=== PATIENT | male | born 1955 | race Caucasian/White ===

== ENCOUNTER 2017-01-09 22:15 | Emergency (ER) | payer BC, OTHER ==
--- NOTE | 2017-01-09 23:41 | EDM.PDOC ---
ED HPI Trauma - General Chief Complaint: Lower Extremity Injury/Pain Stated Complaint: PAIN IN TOE; DIABETIC Time Seen by Provider: 01/09/17 22:47 Source: Reports: Patient, Family (), RN notes reviewed History Limitations: Reports: No limitations - History of Present Illness INITIAL COMMENTS - FREE TEXT/NARRATIVE: The patient states that he has type 1 diabetes, and that he developed an ulcer on his left fifth toe in September 2016. He saw Dr. Manrique, a Upsetter Helper at [facility] in September, which led to debridement and a skin graft. He subsequently saw Dr. Goff, a Upsetter Helper in [place] in early November 2016. He was sent to a gas fitter helper, where a CT angiogram of his lower extremities found peripheral vascular disease. He underwent angioplasty without stents at 2 sites in his left lower extremity towards the end of November 2015. He states that following that procedure, he was prescribed 30 tablets of Percocet. He states that he called Dr. Goff this past 01/06/2017, and an x- ray of his toe was performed, which he was told "looked good". He was instructed to continue daily dressings with antibiotic ointment. He is to followup with Dr. Goff on 01/19/2017. He now presents stating that the Tylenol and ibuprofen that he has been taking for continued left toe pain is inadequate. He states that his vascular surgeon and Podiatrists have refused to prescribe additional narcotics, and instructed him to get additional prescriptions from his primary care physician, Dr. Kunz. He states that he called the office of Dr. Kunz, but that Dr. Kunz did not call him back. Allergies/ADRs: Allergies No Known Allergies Allergy (Verified 01/09/17 22:33) Home Medications: Ambulatory Orders Insulin Lispro [HumaLOG] 0 pump .ROUTE ASDIRECTED 09/24/14 [Confirmed 01/09/17] Lisinopril [Prinivil] 10 mg PO DAILY 09/24/14 [Confirmed 01/09/17] Aspirin 81 mg PO DAILY 01/09/17 [Confirmed 01/09/17] FLUoxetine [PROzac] 20 mg PO DAILY 01/09/17 [Confirmed 01/09/17] Multivitamin [Multivitamins] 1 each PO DAILY 04/07/17 [Confirmed 01/09/17] Past Medical History Cardiovascular History: Reports: PVD Psychiatric History: Reports: Anxiety Endocrine/Metabolic History: Reports: Diabetes, type I - Past Surgical History HEENT Surgical History: Reports: Cataract surgery, Oral surgery ([place] teeth extraction) Cardiovascular Surgical History: Reports: Vascular surgery (LLE angioplasty without stents, 2 locations) Social & Family History - Tobacco Use Smoking Status *Q: Never Smoker - Caffeine Use Caffeine Use: Reports: Coffee - Alcohol Use Alcohol Use History: Yes Days Per Week of Alcohol Use: 2 Number of Drinks Per Day: 2 Total Drinks Per Week: 4 Alcohol Use Frequency: Socially - Recreational Drug Use Recreational Drug Use: No - Living Situation & Occupation Living situation: Reports: , with spouse Occupation: unemployed (x 5 months) Review of Systems - Review of Systems Review Of Systems: See Below Constitutional: Reports: no symptoms Eyes: Reports: no symptoms Ears: Reports: no symptoms Nose: Reports: no symptoms Mouth/Throat: Reports: no symptoms Respiratory: Reports: No Symptoms Cardiovascular: Reports: no symptoms GI/Abdominal: Reports: No symptoms Genitourinary: Reports: no symptoms Musculoskeletal: Reports: no symptoms Skin: Reports: no symptoms Neurological: Reports: No Symptoms Psychiatric: Reports: no symptoms Trauma Exam - Physical Exam Exam: See Below Exam Limited By: No limitations General Appearance: Reports: alert, WD/WN, no apparent distress Extremities: Reports: other (There is a significant ulcer involving the posterior lateral aspect of the left fifth toe. There is swelling to the left foot, and erythema at the base of the left fifth toe. The patient reports no tingling or numbness to the left foot. Perfusion of the left foot is adequate.) Course - Vital Signs Last Recorded V/S: Last Vital Signs Temp 36.3 C 01/09/17 22:28 Pulse 99 01/09/17 22:28 Resp 18 01/09/17 22:28 BP 154/89 H 01/09/17 22:28 Pulse Ox 99 01/09/17 22:28 - Re-Assessments/Exams Free Text/Narrative Re-Assessment/Exam: 01/09/17 23:30 Review of the [place] PMPi indicates that the patient was prescribed 30 Percocet on per his vascular surgeon, Dr. Andrew Dixon, then another 30 Percocet on 12/15/2016 by a mid-level from Dr. Dixon's office. The patient states that his vascular surgeon and Podiatrists have refused to prescribe additional narcotics, and instructed him to get additional prescriptions from his primary care physician, Dr. Kunz. While it is true that Dr. Kunz is out of town this weekend, it does not seem credible that the patient has not been able to reach Dr. Kunz since mid. I don't believe it would be appropriate for me to prescribe strong narcotics to this patient, given that he has several potential prescribers, none of whom were apparently willing to prescribe for him. I will prescribe 15 tablets of tramadol by [facility], then he will have to followup with Dr. Kunz on Thursday morning, 01/12/2017. 01/09/17 23:41 I discussed the above plan with the patient and his . Oddly, the stated that they don't want tramadol, and that they will take nothing if they can't get Percocet. I also offered to prescribe some Keflex to treat a possible infection, enough until he can followup with Dr. Kunz on Thursday, but they declined that as well. They have agreed to followup with Dr. Kunz this coming Thursday. Departure - Departure Time of Disposition: 23:42 Disposition: Home, Self-Care 01 Condition: good Clinical Impression: Diabetic ulcer of toe of left foot, Drug-seeking behavior Instructions: Diabetes and Foot Care Referrals: Cooper Kunz MD [Primary Care Provider] - Forms: ED Department Discharge Additional Instructions: You were seen in the emergency room [facility] for a left pinky toe pain associated with a diabetic ulcer. You were offered prescriptions of the pain medicine tramadol and the antibiotic Keflex, but declined both. We recommend that you continue to care for your toe as you have previously been instructed by your Upsetter Helper. You have agreed to followup with your PCP, Dr. Kunz, this coming Thursday, 07/2017. If any other problems, please do not hesitate to return to the ER.
== END 2017-01-09 23:51 | disposition home or self-care (01) ==
LOC: JD.ED 22:15
CPT/HCPCS: 99283; 99284

== ENCOUNTER 2017-03-17 11:40 | Emergency (ER) | payer BC, OTHER ==
--- NOTE | 2017-03-17 13:57 | EDM.PDOC ---
ED HPI GENERAL MEDICAL PROBLEM - General Chief Complaint: Lower Extremity Injury/Pain Stated Complaint: L FOOT CELLULITIS Time Seen by Provider: 03/17/17 12:10 Source of Information: Reports: Patient History Limitations: Reports: No Limitations - History of Present Illness INITIAL COMMENTS - FREE TEXT/NARRATIVE: Patient is a 61 year old male who presents to the E.D. with cellulitis to the left foot. Patient recently had left 5th toe removed due to osteomyelitis. Was evaluated by [employer] in [facility] with diagnosis of cellulitis requiring IV antibiotics, MRI, and wound debridement. Patient states he was instructed to come back to [place] and be admitted for these therapies. Dr. Manrique has been notified per patient and this has been arranged. Dr. Goff has not made contact with the E.D. Patient has redness to the left foot that is localized. Denies fever, chills, n/v, or red streaking up leg. Left Feet Pain Score (Numeric/FACES): 4 - Related Data Allergies Allergy/AdvReac Type Severity Reaction Status Date / Time No Known Allergies Allergy Verified 03/17/17 11:50 Home Meds: Home Meds Insulin Lispro [HumaLOG] 0 pump .ROUTE ASDIRECTED 09/24/14 [History] Lisinopril [Prinivil] 10 mg PO DAILY 09/24/14 [History] Aspirin 81 mg PO DAILY 01/09/17 [History] FLUoxetine [PROzac] 20 mg PO DAILY 01/09/17 [History] Multivitamin [Multivitamins] 1 each PO DAILY 01/09/17 [History] Clopidogrel Bisulfate [Plavix] 75 mg PO DAILY 03/17/17 [History] Hydrocodone/Acetaminophen [Hydrocodon-Acetaminophen 5-325] 1 tab PO ASDIRECTED PRN 03/17/17 [History] traMADol Hcl/Acetaminophen [Ultracet Tablet] 1 tab PO ASDIRECTED PRN 03/17/17 [ History] Past Medical History Cardiovascular History: Reports: PVD Psychiatric History: Reports: Anxiety Endocrine/Metabolic History: Reports: Diabetes, Type I Dermatologic History: Reports: Decubitus Ulcer - Past Surgical History HEENT Surgical History: Reports: Cataract Surgery, Oral Surgery Cardiovascular Surgical History: Reports: Vascular Surgery Musculoskeletal Surgical History: Reports: Amputation Social & Family History - Family History Cardiac: Reports: CAD - Tobacco Use Smoking Status *Q: Never Smoker Second Hand Smoke Exposure: No - Caffeine Use Caffeine Use: Reports: Coffee, Soda, Tea - Alcohol Use Days Per Week of Alcohol Use: 2 Number of Drinks Per Day: 2 Total Drinks Per Week: 4 - Recreational Drug Use Recreational Drug Use: No - Living Situation & Occupation Living situation: Reports: , with Spouse Occupation: Unemployed Review of Systems - Review of Systems Review Of Systems: ROS reveals no pertinent complaints other than HPI. ED EXAM, GENERAL - Physical Exam Exam: See Below Exam Limited By: No Limitations General Appearance: Alert, WD/WN, No Apparent Distress Ears: Normal External Exam, Hearing Grossly Normal Nose: Normal Inspection Throat/Mouth: Normal Voice, No Airway Compromise Neck: Normal Inspection, Supple Respiratory/Chest: No Respiratory Distress, No Accessory Muscle Use Cardiovascular: Normal Peripheral Pulses, Regular Rate, Rhythm Extremities: Other (Left foot: Surgical shoe with dressing present to the left foot. Dressing removed indicating erythema extended to the dorsum and arch/sole of left foot. Small area of eschar present. No draining noted. No swelling or redness above the ankle. Minimal pain present. ) Neurological: Alert, Oriented, Normal Cognition, No Motor/Sensory Deficits Psychiatric: Normal Affect, Normal Mood Skin Exam: Warm, Dry Course - Vital Signs Last Recorded V/S: Last Vital Signs Temp 97.2 F 03/17/17 14:10 Pulse 90 03/17/17 14:10 Resp 18 03/17/17 14:10 BP 143/70 H 03/17/17 14:10 Pulse Ox 99 03/17/17 14:10 - Re-Assessments/Exams Free Text/Narrative Re-Assessment/Exam: [address] Garcia [employer] [place]. States nursing staff from his clinic contacted the [facility] and was told that the patient requires admission to the ED for IV antibiotics and consultation with Dr. Coleman for cellulitis to the left foot. States that Dr. Manrique was notified of this patient and has agreed to accept the patient. Spoke with the charge nurse, case management, and Dr. Huang nobody contacted them in regards to direct admission of patient. 1236 Dr. Coleman's office was contacted and message left. Dr. Coleman is at lunch and he will contact us when available. 1322: Spoke with Dr. Jared, he will not be around for the next 2 days. In addition patient and him had a falling out and he does not want to see the patient back. Request patient be sent back to [place] for treatment. Dr. Coleman was never notified of the patient returning back to [place] and did not agree to see him back. Attempted to contact on-call orthopedic surgeon with no answer. Unsure if he is in surgery. [address] Garcia, patient will be going back to [place] for treatment. Patient is aware of this and agrees with plan. Patient will be a direct admit. Dr. Escobar's nurse will be contacting the patient during transport. Dressing will be applied to the affected area discharge instructions as documented. Departure - Departure Time of Disposition: 13:57 Disposition: DC/Tfer to Acute Hospital 02 Condition: Good Clinical Impression: Cellulitis and abscess of foot, Status post amputation of toe of left foot - Discharge Information Instructions: Cellulitis, Adult Forms: ED Department Discharge Additional Instructions: Go to the admissions desk at [facility] to be admitted. Dr. Garcia states you will be a direct admit and will not need to go through the E.D. If you should have any questions please call Dr. Hinds nurse. Dr. Garcia nurse should be in contact with you during your drive to give further directions.
[2017-03-17 15:11] VITALS: BP 143/70
== END 2017-03-17 14:15 ==
LOC: JD.ED 11:40
DX: L03.116 Cellulitis of left lower limb (principal); L02.612 Cutaneous abscess of left foot; Z89.422 Acquired absence of other left toe(s); F41.9 Anxiety disorder, unspecified; E10.9 Type 1 diabetes mellitus without complications; I73.9 Peripheral vascular disease, unspecified; Z98.49 Cataract extraction status, unspecified eye; Z98.890 Other specified postprocedural states; Z79.82 Long term (current) use of aspirin; Z79.02 Long term (current) use of antithrombotics/antiplatelets; Z79.899 Other long term (current) drug therapy
CPT/HCPCS: 99284

== ENCOUNTER 2021-01-23 17:56 | Emergency (ER) | payer OTHER, MEDICARE ==
[2021-01-23 18:15] VITALS: BP 153/83; PULSE 101
[2021-01-23] MEDS ORDERED: Ondansetron 4 MG/2 ML SDV IVPUSH ONE (18:20)
[2021-01-23] MEDS ORDERED: Sodium Chloride 0.9% 10 ML Syringe FLUSH PRN (18:20)
[2021-01-23] MEDS: Sodium Chloride 0.9% 1,000 ML IV SCH ×2 (18:25→19:27)
--- NOTE | 2021-01-23 18:48 | EDM.PDOC ---
ED HPI GENERAL MEDICAL PROBLEM - General Chief Complaint: Diabetic Complaint Stated Complaint: HIGH BLOOD SUGAR SENT BY [facility] Time Seen by Provider: 01/23/21 18:12 Source of Information: Reports: Patient, RN Notes Reviewed History Limitations: Reports: No Limitations - History of Present Illness INITIAL COMMENTS - FREE TEXT/NARRATIVE: Patient is a 65-year-old male presents to the ER for issues with elevated blood sugars. He was evaluated by his primary care provider, Dr. Kunz, for elevated blood sugars today. He does have type 1 diabetes mellitus. He notes that his blood sugars were elevated over the last couple weeks, his blood sugar at the clinic today was above 500, they did replace his Omni pod, which is his insulin delivery device, and his blood sugar at the time of triage here was 363. Patient notes he had a little bit of nausea while at the clinic, so they sent him over here for fluids, nausea meds and further management. Patient denies any fevers or chills, cough or shortness of breath, or any other sick-like symptoms prior to this. 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 - Related Data Allergies Allergy/AdvReac Type Severity Reaction Status Date / Time No Known Allergies Allergy Verified 01/23/21 18:15 Home Meds: Home Meds lisinopriL [Prinivil] 10 mg PO DAILY 09/24/14 [History] Aspirin 81 mg PO DAILY 01/09/17 [History] FLUoxetine [PROzac] 20 mg PO DAILY 01/09/17 [History] Multivitamin [Multivitamins] 1 each PO DAILY 01/09/17 [History] Clopidogrel Bisulfate [Plavix] 75 mg PO DAILY 03/17/17 [History] traMADol Hcl/Acetaminophen [Ultracet Tablet] 1 tab PO ASDIRECTED PRN 03/17/17 [History] Gabapentin [Neurontin] 300 mg PO TID 01/23/21 [History] Insulin Aspart (Niacinamide) [Fiasp 100 Unit/ml Vial] 0 units SQ ASDIRECTED 0 01/23/21 [History] lisinopriL [Lisinopril] 10 mg PO DAILY 01/23/21 [History] Past Medical History Cardiovascular History: Reports: High Cholesterol, Hypertension, PVD Neurological History: Reports: Neuropathy, Diabetic Psychiatric History: Reports: Anxiety Endocrine/Metabolic History: Reports: Diabetes, Type I Dermatologic History: Reports: Decubitus Ulcer - Past Surgical History HEENT Surgical History: Reports: Cataract Surgery, Oral Surgery Cardiovascular Surgical History: Reports: Vascular Surgery Musculoskeletal Surgical History: Reports: Amputation Social & Family History - Family History Cardiac: Reports: CAD - Tobacco Use Tobacco Use Status *Q: Never Tobacco User - Caffeine Use Caffeine Use: Reports: Coffee, Soda, Tea - Recreational Drug Use Recreational Drug Use: No - Living Situation & Occupation Living situation: Reports: , with Spouse Occupation: Unemployed ED ROS GENERAL - Review of Systems Review Of Systems: Comprehensive ROS is negative, except as noted in HPI. ED EXAM GENERAL NO PERIP PULSE - Physical Exam Exam: See Below Exam Limited By: No Limitations General Appearance: Alert, WD/WN, No Apparent Distress Respiratory/Chest: No Respiratory Distress, Lungs Clear, Normal Breath Sounds, No Accessory Muscle Use, Chest Non-Tender Cardiovascular: Normal Peripheral Pulses, Regular Rate, Rhythm, No Edema GI/Abdominal: Normal Bowel Sounds, Soft, Non-Tender, No Distention, No Mass Extremities: Normal Inspection, Normal Capillary Refill Neurological: Alert, Oriented, Normal Cognition, No Motor/Sensory Deficits Psychiatric: Normal Affect, Normal Mood Skin Exam: Warm, Dry, Intact, Normal Color, No Rash Course - Vital Signs Last Recorded V/S: Last Vital Signs Temp 97.4 F 01/23/21 18:11 Pulse 101 H 01/23/21 18:11 Resp 16 01/23/21 18:11 BP 153/83 H 01/23/21 18:11 Pulse Ox 99 01/23/21 18:11 - Orders/Labs/Meds Orders: Active Orders 24 hr Category Date Time Status POC Glucose [Blood Glucose Check, Bedside] [RC] Q1H Care 01/23/21 18:21 Ordered Peripheral IV Care [RC] . DIRECTED Care 01/23/21 18:20 Ordered GLUCOSE,POC [POC] Routine Lab 01/23/21 20:41 Received Sodium Chloride 0.9% [Saline Flush] Med 01/23/21 18:20 Ordered 10 ml FLUSH ASDIRECTED PRN Peripheral IV Insertion Adult [OM.PC] Routine Oth 01/23/21 18:20 Ordered Medication Orders Sodium Chloride (Sodium Chloride 0.9% 10 Ml Syringe) 10 ml FLUSH ASDIRECTED PRN PRN Reason: Keep Vein Open Last Admin: 01/23/21 18:26 Dose: 10 ml Documented by: AISSATOU Labs: Laboratory Tests 01/23/21 01/23/21 01/23/21 Range/Units 18:10 18:19 18:20 VBG pH 7.46 H (7.30-7.40) Sodium 129 L (136-145) mEq/L Potassium 4.1 (3.5-5.1) mEq/L Chloride 92 L (98-107) mEq/L Carbon Dioxide 18 L (21-32) mEq/L Anion Gap 23.1 H (5-15) BUN 19 H (7-18) mg/dL Creatinine 1.1 (0.7-1.3) mg/dL Est Cr Clr Drug Dosing 67.84 mL/min Estimated GFR (MDRD) > 60 (>60) mL/min BUN/Creatinine Ratio 17.3 (14-18) Glucose 388 H (80-115) mg/dL POC Glucose 363 H (70-99) mg/dL Calcium 8.6 (8.5-10.1) mg/dL Total Bilirubin 1.0 (0.2-1.0) mg/dL AST 18 (15-37) U/L ALT 33 (16-63) U/L Alkaline Phosphatase 122 H (46-116) U/L Total Protein 7.9 (6.4-8.2) g/dl Albumin 3.7 (3.4-5.0) g/dl Globulin 4.2 gm/dL Albumin/Globulin Ratio 0.9 L (1-2) Ketones (0.0-0.3) mM 01/23/21 01/23/21 Range/Units 18:20 19:31 VBG pH (7.30-7.40) Sodium (136-145) mEq/L Potassium (3.5-5.1) mEq/L Chloride (98-107) mEq/L Carbon Dioxide (21-32) mEq/L Anion Gap (5-15) BUN (7-18) mg/dL Creatinine (0.7-1.3) mg/dL Est Cr Clr Drug Dosing mL/min Estimated GFR (MDRD) (>60) mL/min BUN/Creatinine Ratio (14-18) Glucose (80-115) mg/dL POC Glucose 290 H (70-99) mg/dL Calcium (8.5-10.1) mg/dL Total Bilirubin (0.2-1.0) mg/dL AST (15-37) U/L ALT (16-63) U/L Alkaline Phosphatase (46-116) U/L Total Protein (6.4-8.2) g/dl Albumin (3.4-5.0) g/dl Globulin gm/dL Albumin/Globulin Ratio (1-2) Ketones 1.99 (0.0-0.3) mM Meds: Medications Generic Name Dose Route Start Last Admin Trade Name Freq PRN Reason Stop Dose Admin Sodium Chloride 10 ml 01/23/21 18:20 01/23/21 18:26 Sodium Chloride 0.9% 10 Ml Syringe FLUSH 10 ml ASDIRECTED PRN Administration Keep Vein Open Discontinued Medications Generic Name Dose Route Start Last Admin Trade Name Freq PRN Reason Stop Dose Admin Sodium Chloride 1,000 mls @ 999 mls/hr 01/23/21 18:30 01/23/21 19:27 Normal Saline IV 01/23/21 20:29 999 mls/hr Q1H ELENA Administration Ondansetron HCl 4 mg 01/23/21 18:20 01/23/21 18:26 Ondansetron 4 Mg/2 Ml Sdv IVPUSH 01/23/21 18:21 4 mg ONETIME ONE Administration - Re-Assessments/Exams Free Text/Narrative Re-Assessment/Exam: 01/23/21 18:47 Patient presents to the ER for his elevated blood sugars, we will go ahead get IV started, get some basic labs to include a venous pH, ketone level, and a repeat metabolic panel as he reported his potassium was slightly elevated at the clinic earlier. We will go ahead and give him a IV bolus of fluids, and recheck his blood sugar after the 1 L, plan is to have maybe 2 L for ongoing management. He will also get 4 mg Zofran for his nausea. 01/23/21 18:57 Patient's blood sugar reported by nursing staff, on the patient's continuous glucose monitor is down to 311 already. We will continue to monitor the blood sugars and get him closer to the 200 level. He will likely need the full 2 L however we will reassess need for fluids as time goes on and the sugars improve. 01/23/21 20:49 The patient's ketones level are back at 1.99, his blood glucose is 228 he is feeling well and is wishing to go home at this time. 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 I am okay with his blood sugar being around 200 at this time. Departure - Departure Time of Disposition: 20:49 Disposition: Home, Self-Care 01 Condition: Good Clinical Impression: Hyperglycemia, Elevated blood ketone body level - Discharge Information *PRESCRIPTION DRUG MONITORING PROGRAM REVIEWED*: No *COPY OF PRESCRIPTION DRUG MONITORING REPORT IN PATIENT TITO: No Instructions: Hyperglycemia, [id number] Referrals: Cooper Kunz MD [Primary Care Provider] - Forms: ED Department Discharge Additional Instructions: You were evaluated in the ER today for your elevated blood sugars. You had a few labs done at today's visit, your potassium level was back to within normal limits, and your other metabolic abnormalities should have corrected with a 2 L fluid you were given at today's visit. Your ketone level was 1.99, not in the level of ketoacidosis at this time. Your blood sugar at the time of discharge was roughly 228, please monitor this for the next half hour 45 minutes, and you may do a corrected insulin bolus as needed if your blood sugars remain somewhat high. It is okay for them to be around 200 at this time, they will hopefully get better overnight. Please do not hesitate to return to the ER at any time if symptoms change or worsen. Sepsis Event Note (ED) - Evaluation Sepsis Screening Result: No Definite Risk - Focused Exam Vital Signs: Vital Signs Temp Pulse Resp BP Pulse Ox 01/23/21 18:11 97.4 F 101 H 16 153/83 H 99 - My Orders Last 24 Hours: My Active Orders 01/23/21 18:20 Peripheral IV Care [RC] . DIRECTED Sodium Chloride 0.9% [Saline Flush] 10 ml FLUSH ASDIRECTED PRN Peripheral IV Insertion Adult [OM.PC] Routine 01/23/21 18:21 POC Glucose [Blood Glucose Check, Bedside] [RC] Q1H 01/23/21 20:41 GLUCOSE,POC [POC] Routine - Assessment/Plan Last 24 Hours: My Active Orders 01/23/21 18:20 Peripheral IV Care [RC] . DIRECTED Sodium Chloride 0.9% [Saline Flush] 10 ml FLUSH ASDIRECTED PRN Peripheral IV Insertion Adult [OM.PC] Routine 01/23/21 18:21 POC Glucose [Blood Glucose Check, Bedside] [RC] Q1H 01/23/21 20:41 GLUCOSE,POC [POC] Routine
== END 2021-01-23 20:55 | disposition home or self-care (01) ==
LOC: JD.ED 17:56
DX: E10.65 Type 1 diabetes mellitus with hyperglycemia (principal); E78.00 Pure hypercholesterolemia, unspecified; E10.40 Type 1 diabetes mellitus with diabetic neuropathy, unspecified; I10 Essential (primary) hypertension; Z79.82 Long term (current) use of aspirin; Z79.02 Long term (current) use of antithrombotics/antiplatelets; Z79.899 Other long term (current) drug therapy; R79.89 Other specified abnormal findings of blood chemistry
CPT/HCPCS: 36415; 80053; 82009; 82800; 82947; 96374; 99284; J2405; J7030

== ENCOUNTER 2021-08-24 20:57 | Emergency (ER) | payer OTHER, MEDICARE ==
[2021-08-24 21:12] VITALS: BP 157/87; PULSE 104
--- NOTE | 2021-08-24 21:22 | EDM.PDOC ---
ED HPI GENERAL MEDICAL PROBLEM - General Chief Complaint: Lower Extremity Injury/Pain Stated Complaint: TOE LAC Time Seen by Provider: 08/24/21 21:06 Source of Information: Reports: Patient, RN Notes Reviewed History Limitations: Reports: No Limitations - History of Present Illness INITIAL COMMENTS - FREE TEXT/NARRATIVE: Patient is a 66-year-old male who presents to the ER for his right third toe laceration. was trying to clip the patient's toenails at home, states when she pushed on the nail little bit too hard, and the clipper slipped and she ended up lacerating the patient's what appears to be nailbed. There is quite a bit of bleeding at this time however it seems to be controlled. Patient is not having any pain with this area. No numbness or tingling noted. Patient denies any other sick-like symptoms, fever/chills, cough/shortness of breath, nausea/vomiting/diarrhea. Patient's not really sure when his last Tdap booster was. - Related Data Allergies Allergy/AdvReac Type Severity Reaction Status Date / Time No Known Allergies Allergy Verified 08/24/21 21:12 Home Meds: Home Meds Aspirin 81 mg PO DAILY 01/09/17 [History] FLUoxetine [PROzac] 20 mg PO DAILY 01/09/17 [History] Multivitamin [Multivitamins] 1 each PO DAILY 01/09/17 [History] Gabapentin [Neurontin] 300 mg PO DAILY 01/23/21 [History] lisinopriL [Lisinopril] 10 mg PO DAILY 01/23/21 [History] Insulin Lispro [Humalog] 0 unit SQ ASDIRECTED 08/24/21 [History] Past Medical History Cardiovascular History: Reports: High Cholesterol, Hypertension, PVD Neurological History: Reports: Neuropathy, Diabetic Psychiatric History: Reports: Anxiety Endocrine/Metabolic History: Reports: Diabetes, Type I Dermatologic History: Reports: Decubitus Ulcer - Past Surgical History HEENT Surgical History: Reports: Cataract Surgery, Oral Surgery Cardiovascular Surgical History: Reports: Vascular Surgery Musculoskeletal Surgical History: Reports: Amputation Social & Family History - Family History Family Medical History: No Pertinent Family History Cardiac: Reports: CAD - Caffeine Use Caffeine Use: Reports: Coffee, Soda, Tea - Living Situation & Occupation Living situation: Reports: , with Spouse Occupation: Unemployed Review of Systems - Review of Systems Review Of Systems: Comprehensive ROS is negative, except as noted in HPI. ED EXAM, GENERAL - Physical Exam Exam: See Below Exam Limited By: No Limitations General Appearance: Alert, WD/WN, No Apparent Distress Respiratory/Chest: No Respiratory Distress, Lungs Clear, Normal Breath Sounds, No Accessory Muscle Use, Chest Non-Tender Cardiovascular: Normal Peripheral Pulses, Regular Rate, Rhythm, No Edema Peripheral Pulses: 2+: Radial (L), Radial (R) Extremities: Normal Capillary Refill, Other (Right third toe laceration, this does appear to be at the nailbed, the lateral portions of the nail are still intact.) Neurological: Alert, Oriented, Normal Cognition, No Motor/Sensory Deficits Psychiatric: Normal Affect, Normal Mood Skin Exam: Warm, Dry, Intact, Normal Color, No Rash Course - Vital Signs Last Recorded V/S: Last Vital Signs Temp 96.9 F 08/24/21 21:09 Pulse 104 H 08/24/21 21:09 Resp 17 08/24/21 21:09 BP 157/87 H 08/24/21 21:09 Pulse Ox 98 08/24/21 21:09 - Re-Assessments/Exams Free Text/Narrative Re-Assessment/Exam: 08/24/21 21:22 Patient presents to the ER for a right third toe laceration. Not a lot that can be done for laceration repair. Will likely soak the toe get it cleaned up, and get it bandaged. He will likely lose the toenail in some time, but since it still fairly attached to the lateral portion will provide some protection of the nailbed. We will have him follow-up with podiatry of choice or his regular care provider this week for reevaluation and ongoing management. Departure - Departure Time of Disposition: 21:26 Disposition: Home, Self-Care 01 Condition: Good Clinical Impression: Nailbed laceration, toe Qualifiers: Encounter type: initial encounter Qualified Code(s): S91.219A - Laceration without foreign body of unspecified toe(s) with damage to nail, initial encounter - Discharge Information *PRESCRIPTION DRUG MONITORING PROGRAM REVIEWED*: No *COPY OF PRESCRIPTION DRUG MONITORING REPORT IN PATIENT TITO: No Instructions: Nonsutured Laceration Care Referrals: Cooper Kunz MD [Primary Care Provider] - Forms: ED Department Discharge Additional Instructions: You were evaluated in the ER today for your toe laceration. Although your nailbed appears to be lacerated, the lateral portions of her nail are still intact, and this will provide some protection of the toe however it is likely that you will lose this nail in time. Please keep the area clean and dry, you may soak with Epsom salts, over the next few days, you may apply topical bacitracin and bandage to the area for wound management purposes. If you should notice any red streaking starting up the foot, or drainage coming from the wound site please have this evaluated sooner rather than later due to the possibility of infection. Would recommend that you follow-up with your care provider, sometime this week yet for reevaluation of the area, and/or podiatry for ongoing management. Dr. Dick at [facility], does come to the [facility] weekly for appointments. Please call [phone] to obtain an appoint with him, or you might try any sort of antenna machine operator in [facility] there are should be multiple providers that should be able to provide you with any of these services; [facility], there is [facility], etc. Do not hesitate to return to the ER if your symptoms change or worsen. Sepsis Event Note (ED) - Evaluation Sepsis Screening Result: No Definite Risk - Focused Exam Vital Signs: Vital Signs Temp Pulse Resp BP Pulse Ox 08/24/21 21:09 96.9 F 104 H 17 157/87 H 98
== END 2021-08-24 22:25 | disposition home or self-care (01) ==
LOC: JD.ED 20:57
DX: S91.214A Laceration without foreign body of right lesser toe(s) with damage to nail, initial encounter (principal); E78.00 Pure hypercholesterolemia, unspecified; I10 Essential (primary) hypertension; E10.9 Type 1 diabetes mellitus without complications; Z79.899 Other long term (current) drug therapy; W26.8XXA Contact with other sharp object(s), not elsewhere classified, initial encounter; Y92.009 Unspecified place in unspecified non-institutional (private) residence as the place of occurrence of the external cause
CPT/HCPCS: 99282

== ENCOUNTER 2024-01-06 02:33 | Emergency (ER) | payer OTHER, MEDICARE ==
[2024-01-06 02:56] LABS: BASOPHILS ABSOLUTE AUTO 0.1 K/mm3 (0.0-0.2); BASOPHILS PERCENT AUTO 0.7 % (0.0-1.0); EOSINOPHILS ABSOLUTE AUTO 0.3 K/mm3 (0.0-0.4); EOSINOPHILS PERCENT AUTO 2.5 % (0.0-6.0); HEMATOCRIT 44.1 % (42.0-52.0); HEMOGLOBIN 14.9 gm/dl (14.0-18.0); IMMATURE GRAN ABSOLUTE AUTO 0.02 K/mm3 (0.00-0.05); IMMATURE GRAN PERCENT AUTO 0.2 % (0.0-0.4); LYMPHOCYTES ABSOLUTE AUTO 2.2 K/mm3 (1.0-4.8); LYMPHOCYTES PERCENT AUTO 22.2 % (24.0-44.0); MEAN CORPUSCULAR HEMOGLOBIN 30.9 pg (28.0-32.0); MEAN CORPUSCULAR HGB CONC 33.8 g/dl (32.0-36.0); MEAN CORPUSCULAR VOLUME 91.5 fl (83.0-99.0); MEAN PLATELET VOLUME 8.8 fl (9.4-12.4); MONOCYTES ABSOLUTE AUTO 0.9 K/mm3 (0.0-0.8); MONOCYTES PERCENT AUTO 9.2 % (0.0-8.0); NEUTROPHILS ABSOLUTE AUTO 6.4 K/mm3 (1.8-7.7); NEUTROPHILS PERCENT AUTO 65.2 % (41.0-71.0); PLATELET COUNT,PLT 263 K/mm3 (150-400); RED BLOOD CELL COUNT 4.82 M/mm3 (4.52-5.90); WHITE BLOOD CELL COUNT,WBC 9.81 K/mm3 (3.9-11.3)
[2024-01-06 03:18] LABS: ALANINE AMINOTRANSFERASE,ALT 26 U/L (16-63); ALBUMIN 3.7 g/dl (3.4-5.0); ALKALINE PHOSPHATASE 96 U/L (46-116); ANION GAP 9.7 (5-15); ASPARTATE AMNIOTRANSFERASE,AST 14 U/L (15-37); BILIRUBIN TOTAL 0.3 mg/dL (0.2-1.0); BLOOD UREA NITROGEN,BUN 19 mg/dL (7-18); BUN/CREATININE RATIO 17.3 (14-18); CARBON DIOXIDE,CO2 30 mEq/L (21-32); CHLORIDE,CL 103 mEq/L (98-107); CREATININE 1.1 mg/dL (0.7-1.3); ESTIMATED GFR 74 mL/min (>60); GLUCOSE RANDOM 135 mg/dL (70-99); POTASSIUM,K 3.7 mEq/L (3.5-5.1); PROTEIN TOTAL,TP 7.6 g/dl (6.4-8.2); SODIUM,NA 139 mEq/L (136-145)
[2024-01-06 05:05] VITALS: BP 139/89; PULSE 75
== END 2024-01-06 05:06 | disposition home or self-care (01) ==
LOC: JD.ED 02:33
DX: E10.649 Type 1 diabetes mellitus with hypoglycemia without coma (principal); I10 Essential (primary) hypertension; E10.40 Type 1 diabetes mellitus with diabetic neuropathy, unspecified; Z79.4 Long term (current) use of insulin; Z79.84 Long term (current) use of oral hypoglycemic drugs; Z79.899 Other long term (current) drug therapy
CPT/HCPCS: 36415; 80053; 82947; 85025; 99282; 99284